=== PATIENT | female | born 1965 ===

== ENCOUNTER 2020-12-04 07:46 | Day surgery (SDC) | payer OTHER ==
[~2020-12-04] VITALS: Ht 172.7 cm; Wt 85.7 kg
[~2020-12-04 07:46] MED LIST: CITA20; Lisinopril-Hct1 EAC4; PROG100 PO
--- NOTE | 2020-12-04 08:22 | NUR ---
12/04/20 0822 Brian wang FIRST IV IN RIGHT HAND BY SANDEE BLEW SECOND IV IV RIGHT ARM BY RN BLEW THIRD IV IN LEFT HAND BY SANDEE WORKED
== END 2020-12-04 10:20 | disposition home or self-care (01) ==
LOC: ORSCSDS 07:46
PROVIDERS: Student in an Organized Health Care Education/Training Program
PROC: 0DBN8ZX Excision of Sigmoid Colon, Via Natural or Artificial Opening Endoscopic, Diagnostic (ICD-10-PCS; principal; 2020-12-04 09:00)
PROC: 0DBL8ZX Excision of Transverse Colon, Via Natural or Artificial Opening Endoscopic, Diagnostic (ICD-10-PCS; principal; 2020-12-04 09:00)
PROC: 0DBK8ZX Excision of Ascending Colon, Via Natural or Artificial Opening Endoscopic, Diagnostic (ICD-10-PCS; principal; 2020-12-04 09:00)
DX: K92.1 Melena (principal); D12.3 Benign neoplasm of transverse colon; D12.2 Benign neoplasm of ascending colon; D12.5 Benign neoplasm of sigmoid colon; K63.5 Polyp of colon; K57.30 Diverticulosis of large intestine without perforation or abscess without bleeding; I10 Essential (primary) hypertension; Z79.899 Other long term (current) drug therapy
CPT/HCPCS: 88305; J2704; J7120

== ENCOUNTER 2022-05-20 11:01 | Day surgery (SDC) | payer OTHER ==
[~2022-05-20] VITALS: Ht 172.7 cm; Wt 89.0 kg
[2022-05-20] MEDS ORDERED: ERGO400 (11:10)
--- NOTE | 2022-05-20 11:36 | NUR ---
05/20/22 1136 Jenni Taylor TWO ATTEMPTS AT IV BY MA. FIRST ATTEMPT AT IV IN R HAND BY MA INFILTRATED. SECOND ATTEMPT AT IV BY MA IN LEFT HAND SUCESSFUL.
== END 2022-05-20 12:51 | disposition home or self-care (01) ==
LOC: ORSCSDS 11:01
PROVIDERS: Student in an Organized Health Care Education/Training Program
PROC: 0DBK8ZX Excision of Ascending Colon, Via Natural or Artificial Opening Endoscopic, Diagnostic (ICD-10-PCS; principal; 2022-05-20 12:15)
PROC: 0DBN8ZX Excision of Sigmoid Colon, Via Natural or Artificial Opening Endoscopic, Diagnostic (ICD-10-PCS; principal; 2022-05-20 12:15)
PROC: 0DBL8ZX Excision of Transverse Colon, Via Natural or Artificial Opening Endoscopic, Diagnostic (ICD-10-PCS; principal; 2022-05-20 12:15)
DX: Z86.010 Personal history of colon polyps (principal); D12.3 Benign neoplasm of transverse colon; D12.2 Benign neoplasm of ascending colon; K63.5 Polyp of colon; K57.30 Diverticulosis of large intestine without perforation or abscess without bleeding; I10 Essential (primary) hypertension; Z79.899 Other long term (current) drug therapy
CPT/HCPCS: J2704; J7120